=== PATIENT | male | born 1955 | race Caucasian/White ===

== ENCOUNTER 2017-11-06 10:42 | Inpatient (IN) | payer BC ==
[2017-10-31 12:22] LABS: URINE BILIRUBIN NEGATIVE (Negative); URINE BLOOD NEGATIVE (Negative); URINE CLARITY CLEAR; URINE COLOR YELLOW; URINE GLUCOSE-RANDOM NEGATIVE (Negative); URINE KETONES NEGATIVE (Negative); URINE LEUKOCYTES-REFLEX NEGATIVE (Negative); URINE NITRITE-REFLEX NEGATIVE (Negative); URINE PROTEIN NEGATIVE (Negative); URINE SPECIFIC GRAVITY 1.015 (1.005-1.030); URINE UROBILINOGEN 0.2 E.U./dl (0.2-1.0)
[2017-10-31 12:23] LABS: HEMATOCRIT 46.3 % (42.0-52.0); HEMOGLOBIN 15.5 gm/dL (14.0-18.0); MCH 30.1 pg (26.0-34.0); MCHC 33.4 g/dL (28.0-37.0); MCV 90.1 fL (80.0-100.0); MPV 8.8 fl. (7.2-11.1); RBC 5.14 mil/uL (4.50-6.00); RDW-CV 14.7 % (10.5-14.5); WBC 10.9 thou/uL (4.0-11.0)
[2017-10-31 12:36] LABS: CALCIUM 9.1 mg/dL (8.5-10.1); POTASSIUM 3.9 mmol/L (3.5-5.1); TOTAL BILIRUBIN 0.6 mg/dL (<0.1-1.0); TOTAL PROTEIN 8.2 g/dL (6.4-8.2)
[2017-10-31 13:17] LABS: INR 1.1; PROTIME 10.8 Seconds (9.20-11.50)
--- NOTE | 2017-10-31 17:58 | EKG ---
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1955 Requested By: Zack Crowe Order Number: [id number] Reading MD: Claudy Ray Measurements Intervals Ferguson Rate: 73 P: -9 WI: 217 QRS: -28 QRSD: 106 T: 35 QT: 391 QTc: 431 Interpretive Statements Sinus rhythm Prolonged WI interval Probable left atrial enlargement Borderline left axis deviation Anterior infarct, old No previous ECG available for comparison Electronically Signed On 10-31-2017 17:58:18 [employer]CH[employer]IC by Claudy Ray [email or web address] <ELECTRONICALLY SIGNED> By: Claudy Ray MD, [facility] 10/31/17 1758 1236 1236 Claudy Ray MD, FACC /EPI
[~2017-11-06] VITALS: Ht 177.8 cm; Wt 149.7 kg
[~2017-11-06 10:42] MED LIST: ASPIRIN325 PO; ATORVASTATIN CA40 MG PO; CLARITIN10 M2 PO; COREG25 MG PO; DIOVAN 80 MG TA80 M1 PO; EFFEXOR XR75 MG PO; FLOMAX0.4 MG PO; FLONASE 0.05%50 MCG NASAL; LASIX 20 MG TAB20 MG PO; METFORMIN HCL500 MG PO; NAPROSYN500 MG PO; OXYCODONE HCL 55 MG PO; PEPCID20 MG PO; SILENOR6 MG PO; SINGULAIR 10 MG10 M1 PO; TRAMADOL 50 MG50 MG PO; TROKENDI XR25 MG PO
[2017-11-06 12:49] VITALS: BP 158/101
[2017-11-06 20:00] VITALS: BP 147/84
[2017-11-07] VITALS (7 sets, daily range): BP systolic 144–191; BP diastolic 84–98
[2017-11-07 05:24] LABS: HEMATOCRIT 40.6 % (42.0-52.0); HEMOGLOBIN 13.3 gm/dL (14.0-18.0)
[2017-11-07 06:19] LABS: URINE BILIRUBIN NEGATIVE (Negative); URINE BLOOD NEGATIVE (Negative); URINE CLARITY CLEAR; URINE COLOR YELLOW; URINE GLUCOSE-RANDOM NEGATIVE (Negative); URINE KETONES NEGATIVE (Negative); URINE LEUKOCYTES NEGATIVE (Negative); URINE NITRITE NEGATIVE (Negative); URINE PROTEIN NEGATIVE (Negative); URINE UROBILINOGEN 0.2 E.U./dl (0.2-1.0)
[2017-11-08 04:05] VITALS: BP 179/93
[2017-11-08 04:32] LABS: HEMATOCRIT 39.9 % (42.0-52.0); HEMOGLOBIN 13.4 gm/dL (14.0-18.0)
--- NOTE | 2017-11-08 14:37 | S ---
[address] [address] SURGICAL PATH RPT PROCEDURE Name: PRAVIN RIZO Room: [address] IN M.R.#: [id number] Admission: 11/06/17 Date of : 59 Discharge: Report #: [id number] Path Case #: [id number] PATHOLOGY REPORT COLLECTION DATE: 11/06/2017 RECEIVED DATE: 11/07/2017 SUBMITTING PHYS: Dr. Zack Crowe II OTHER PHYS: Dr. Jhony Romero SPECIMEN(S) RECEIVED: A.Right knee bone and tissue * * * * * * * * * * * * FINAL DIAGNOSIS: Right knee bone tissue, total knee replacement: - Benign meniscus, mild nonspecific chronic synoviitis and benign bone and cartilage with severe degenerative changes. (MARYANN:zoey; 11/08/2017) PATHOLOGIST: Maksim Arzate M.D. REPORT ELECTRONICALLY SIGNED BY: Maksim Arzate M.D. DATE/TIME: 11/08/2017 14:36 * * * * * * * * * * * * GROSS PATHOLOGY: Received in formalin labeled "Pravin Rizo, right knee bone tissue," are multiple segments of bone, including tibial plateau, measuring 9.5 x 8.2 x 3.1 cm in aggregate dimensions admixed with soft tissue; meniscus is present. The specimen shows focal eburnation of the articular surfaces. 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 (CAA; 11/07/2017) CLINICAL HISTORY: Right knee degenerative joint disease INITIAL CPT CODE(S): A; 04327, 04799 Professional services performed by [facility] at [facility], [address] [place] [address] , [place] [address]. Technical services performed by [facility] at [address] [place] [address], [facility] [address] [address]. [place] [id number] SURGICAL PATH RPT PROCEDURE Name: PRAVIN RIZO Room: [address] IN [facility].#: [id number] Admission: 11/06/17 Date of : 59 Discharge: Report #: [id number] Path Case #: [id number] [facility] [address] [address] PHONE: [phone] DIRECTOR: Angel Zamudio M.D. * * * END OF REPORT * * *
[2017-11-08 16:08] VITALS: BP 161/88
--- NOTE | 2017-11-08 16:16 | OP ---
[address] [address] OPERATIVE REPORT Name: PRAVIN RIZO Room: [address] IN M.R.#: [id number] Admission: 11/06/17 Attend Phys: Marsha Hoskins Discharge: Date of : 59 Report #: [id number] THIS REPORT FOR: //name// CC: VERO Hayes DATE OF SERVICE: 11/06/2017 PREOPERATIVE DIAGNOSIS: Right knee osteoarthritis. POSTOPERATIVE DIAGNOSIS: Right knee osteoarthritis. PROCEDURE: Right total knee arthroplasty with Navio. SURGEON: Zack Crowe II, DO FIRST ASSISTANT: RICK Porter ANESTHESIA: Per operative record. ESTIMATED BLOOD LOSS: 50 mL. ANTIBIOTICS: Per operative record. DRAINS: Medium Hemovac. COMPLICATIONS: None. CONDITION: The patient stable to recovery room. IMPLANTS: Size listed in progress note and operative record. BRIEF HISTORY: The patient was seen in the preoperative area. Preop H and P was performed. The patient has failed conservative management, was discussed risks and benefits of surgery, elected to proceed, assumed all risks. DESCRIPTION OF PROCEDURE: The patient was taken to the operative suite, placed supine on the operating table and given appropriate anesthesia. The patient's right knee was sterilely prepped and draped with a well-padded tourniquet applied to the upper thigh, which was inflated to 300 mmHg after gravity exsanguination for the duration of procedure. Procedure began by midline incision on the right knee and carried down to subcutaneous tissues. A medial parapatellar arthrotomy was performed and carried down to bone. The patella was then everted and excess soft tissue removed from around the femur and tibia. At [place] [id number] OPERATIVE REPORT Name: PRAVIN RIZO Room: [address] IN [facility].#: [id number] Admission: 11/06/17 Attend Phys: Marsha Hoskins Discharge: Date of : 59 Report #: [id number] this time, the tracker pins were then placed in the femur and tibia. The knee was then registered throughout range of motion as appropriate for the Navio robotic assistance. The robot was then activated and appropriate bur holes were then placed throughout the femur and tibia in line with the preoperative planning. The femoral cutting block was then applied, checked for rotational alignment and cut depth and appropriate cut was made. The 4-in-1 cutting block was then applied, checked for rotational alignment and the cut depth and appropriate cuts were made. These bones were then removed. Attention was then turned to the tibia. Tibial cutting block was then applied, checked for rotational alignment and slope, and was pinned into appropriate position and appropriate cut was made. Excess bone was then removed utilizing a rongeur and electrocautery. Tibial baseplate was then applied, checked for rotational alignment, pinned in appropriate position. Femur was then applied and a box cut was reamed. It was then trialed. A trial spacer which was taken to full flexion, extension showed excellent range of motion and excellent stability. Patella was then reamed in appropriate fashion. Three peg holes were drilled and it was then trialled and shown to have excellent flexion and extension of the knee. These trials were then removed. The tibia was then punched in appropriate fashion. Bone ends were cleaned with Pulsavac irrigation and cement was mixed and applied the final implants. These were then malleted in position and held with compression across the joint to allow the cement to cure. The tracker and pins were then removed at this time and nylon was utilized to close the incisions. After cement cured, excess was then removed utilizing a Eckerty and osteotome. The final spacer was then selected and malleted in position and shown to have excellent fit and fill and excellent stability of the knee through all range of motion. The wound was then cleansed with Pulsavac irrigation and full irrigation. A pain cocktail was injected. PRP gel was sprayed throughout the internal aspect of the knee and the tourniquet was deflated and hemostasis was maintained with electrocautery. The capsule was then closed with a 1 Vicryl and a FiberWire stitch in [id number] fashion. A medium drain was then applied. Skin was closed with 2-0 Vicryl and running Monocryl stitch. Dermabond and sterile dressing was applied. The patient was transported to recovery room in stable condition. Counts were correct throughout the procedure. <ELECTRONICALLY SIGNED> By: Zack Crowe II, DO 11/08/17 1616 0801 [id number] Crowe II, DO /nt
[2017-11-08 20:25] VITALS: BP 132/67
[2017-11-09 00:12] VITALS: BP 162/60
[2017-11-09 04:24] VITALS: BP 112/64
[2017-11-09 08:00] VITALS: BP 102/54
[2017-11-09 16:09] VITALS: BP 149/82
[2017-11-09 20:05] VITALS: BP 107/53
[2017-11-10 00:45] VITALS: BP 111/53
[2017-11-10 04:11] VITALS: BP 111/52
[2017-11-10 08:00] VITALS: BP 114/62
[2017-11-10 14:05] VITALS: BP 144/84
== END 2017-11-10 14:00 | DRG 470 ==
LOC: M.PRE 10:42 → M.ORTHSURG 10:52 → M.PRE 10:52 → M.TBA 10:52 → M.PRE 12:14 → M.ORTHSURG 18:53
PROVIDERS: Orthopaedic Surgery; ADMIT Internal Medicine
PROC: 0SRC0J9 Replacement of Right Knee Joint with Synthetic Substitute, Cemented, Open Approach (ICD-10-PCS; principal; 2017-11-06)
PROC: 3E0T3BZ Introduction of Anesthetic Agent into Peripheral Nerves and Plexi, Percutaneous Approach (ICD-10-PCS; 2017-11-06)
DX: M17.11 Unilateral primary osteoarthritis, right knee (principal); Z68.42 Body mass index [BMI] 45.0-49.9, adult; I25.10 Atherosclerotic heart disease of native coronary artery without angina pectoris; E11.9 Type 2 diabetes mellitus without complications; E66.9 Obesity, unspecified; K58.9 Irritable bowel syndrome, unspecified; I10 Essential (primary) hypertension; R25.2 Cramp and spasm; R33.9 Retention of urine, unspecified; Z88.8 Allergy status to other drugs, medicaments and biological substances; Z82.49 Family history of ischemic heart disease and other diseases of the circulatory system; Z95.5 Presence of coronary angioplasty implant and graft; Z88.2 Allergy status to sulfonamides; Z95.1 Presence of aortocoronary bypass graft